=== PATIENT | female | born 1985 | race Caucasian/White ===

== ENCOUNTER → 2017-02-24 | Outpatient (CLI) | payer BC ==
[~2017-02-24] MED LIST: BACTROBAN22 GM TOP; CLINDAMYCIN HC300 MG PO; NEXPLANON68 MG SQ; PERCOCET 7.5/321 TAB PO; ULTRAM PO; VIBRAMYCIN100 M1 PO
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
== END | disposition home or self-care (01) ==
LOC: CMRI 15:21
DX: M54.2 Cervicalgia (principal); G89.29 Other chronic pain; J34.2 Deviated nasal septum; J34.1 Cyst and mucocele of nose and nasal sinus; M50.922 Unspecified cervical disc disorder at C5-C6 level; M50.222 Other cervical disc displacement at C5-C6 level
CPT/HCPCS: 70553; 72156; 72158; A9577